=== PATIENT | female | born 1955 | race Caucasian/White ===

== ENCOUNTER 2016-07-12 06:55 | Emergency (ER) | payer OTHER, MEDICAID ==
[~2016-07-12] VITALS: Ht 167.6 cm; Wt 74.0 kg
[2016-07-12 06:56] VITALS: BP 122/78; PULSE 99; RESP 22; TEMP 97.9; O2SAT 95
--- NOTE | 2016-07-12 07:49 | RADRPT ---
EXAM DATE/TIME: 07/12/2016 07:53 [facility] COMPARISON: No previous studies available for comparison. INDICATIONS : Short of breath and productive cough for three days. MEDICAL HISTORY : None. SURGICAL HISTORY : None. ENCOUNTER: Initial ACUITY: 3 days PAIN SCORE: 0/10 LOCATION: Bilateral chest FINDINGS: PA and lateral views of the chest demonstrate the lungs to be symmetrically aerated without evidence of mass, infiltrate or effusion. The cardiomediastinal contours are unremarkable. Osseous structure s are intact. CONCLUSION: Normal examination. Nayely Kraus MD on July 12, 2016 at 7:47 Board Certified Radiologist. This report was verified electronically.
--- NOTE | 2016-07-12 07:58 | PD ---
HPI Chief Complaint: Cold / Flu Symptoms Time Seen by Provider: 07:55 Travel History International Travel<30 days: No Contact w/Intl Traveler<30days: No Traveled to known affect area: No History of Present Illness HPI 60-year-old female presents to the emergency department for evaluation of productive cough, congestion, sore throat, intermittent shortness of breath for 2 days. She believes she has run a fever, but has not checked her temperature. She denies any chest pain. No abdominal pain. No nausea or vomiting. She has no chronic medical problems and takes no prescribed medications. Patient states this feels like previous bronchitis in the past. Patient is a current smoker. She denies any recent travel or surgery. No history of blood clots. No hemoptysis. She has no other complaints. PFSH Past Surgical History Tonsillectomy: Yes Social History Alcohol Use: Yes (rare) Tobacco Use: Yes (04/22 ppd) Substance Use: No Allergies-Medications (Allergen,Severity, Reaction): Coded Allergies: No Known Allergies (Unverified , 07/12/16) Reported Meds & Prescriptions Reported Meds & Active Scripts Active Zithromax Z-Eulalio (Azithromycin) 250 Mg Dspk 250 Mg PO DIRECTED 500 MG (2 tabs) day 1, then 1 tab days 2-5. Prednisone 20 Mg Tab 40 Mg PO DAILY 4 Days Proair Hfa 8.5 GM Inh (Albuterol Sulfate) 90 Mcg/Act Aer 1 Puff INH Q4H PRN 108 mcg/actuation Review of Systems Except as stated in HPI: all other systems reviewed are Neg Physical Exam Narrative GENERAL: Well-developed well-nourished female patient, ambulatory. Afebrile. SKIN: Warm and dry. HEAD: Normocephalic. Atraumatic. ENT: Mucosa pink and moist. No erythema or exudates. No uvular edema. No uvular , palatal, or tonsillar deviation. Airway patent. Nasal turbinates appear normal without nasal blood, purulent drainage or septal hematoma. Bilateral tympanic membranes are clear without erythema or perforation. EYES: No scleral icterus. No injection or drainage. NECK: Supple, trachea midline. No JVD or lymphadenopathy. CARDIOVASCULAR: Regular rate and rhythm without murmurs, gallops, or rubs. RESPIRATORY: Breath sounds equal bilaterally. No accessory muscle use. Lungs sounds with slight extra wheezes noted throughout. GASTROINTESTINAL: Abdomen soft, non-tender, nondistended. MUSCULOSKELETAL: No cyanosis, or edema. BACK: Nontender without obvious deformity. No CVA tenderness. Data Data Last Documented VS Vital Signs Date Time Temp Pulse Resp B/P Pulse Ox O2 Delivery O2 Flow Rate FiO2 07/12/16 06:56 97.9 99 22 122/78 95 Room Air Orders Complete Blood Count With Diff (07/12/16 07:24) Basic Metabolic Panel (Bmp) (07/12/16 07:24) Chest, Pa & Lat (07/12/16 07:24) Blood Culture (07/12/16 07:24) Iv Access Insert/Monitor (07/12/16 07:24) Ecg Monitoring (07/12/16 07:24) Oxygen Administration (07/12/16 07:24) Oximetry (07/12/16 07:24) Electrocardiogram (07/12/16 07:24) Prednisone (Deltasone) (07/12/16 08:00) Albuterol-Ipratropium Neb (Duoneb Neb) (07/12/16 08:00) Influenzae A/B Antigen (07/12/16 07:59) Potassium Chloride (Kcl) (07/12/16 09:15) Labs Laboratory Tests Test 07/12/16 07:55 White Blood Count 13.1 TH/MM3 Red Blood Count 4.96 MIL/MM3 Hemoglobin 15.2 GM/DL Hematocrit 44.8 % Mean Corpuscular Volume 90.3 FL Mean Corpuscular Hemoglobin 30.6 PG Mean Corpuscular Hemoglobin 33.9 % Concent Red Cell Distribution Width 13.3 % Platelet Count 291 TH/MM3 Mean Platelet Volume 7.7 FL Neutrophils (%) (Auto) 77.0 % Lymphocytes (%) (Auto) 15.0 % Monocytes (%) (Auto) 6.3 % Eosinophils (%) (Auto) 1.4 % Basophils (%) (Auto) 0.3 % Neutrophils # (Auto) 10.1 TH/MM3 Lymphocytes # (Auto) 2.0 TH/MM3 Monocytes # (Auto) 0.8 TH/MM3 Eosinophils # (Auto) 0.2 TH/MM3 Basophils # (Auto) 0.0 TH/MM3 CBC Comment DIFF FINAL Differential Comment Sodium Level 136 MEQ/L Potassium Level 3.3 MEQ/L Chloride Level 102 MEQ/L Carbon Dioxide Level 26.8 MEQ/L Anion Gap 7 MEQ/L Blood Urea Nitrogen 11 MG/DL Creatinine 0.90 MG/DL Estimat Glomerular Filtration 64 ML/MIN Rate Random Glucose 120 MG/DL Calcium Level 9.3 MG/DL [facility] Medical Decision Making Medical Screen Exam Complete: Yes Emergency Medical Condition: Yes Medical Record Reviewed: Yes Interpretation(s) Last Impressions Chest X-Ray 07/12/16 0724 Signed Impressions: Service Date/Time: Tuesday, July 12, 2016 07:53 - CONCLUSION: Normal examination. Nayely Kraus MD Differential Diagnosis Bronchitis versus URI versus pneumonia versus sinusitis Narrative Course 60-year-old female presents to the emergency department for evaluation of cold symptoms for 2 days. Physical exam reveals expiratory wheezes noted throughout. Physical exam is consistent with URI/bronchitis. CBC, BMP, EKG, chest x-ray, blood cultures 2 were ordered prior to me seeing the patient. Influenza is ordered and pending. Patient is given DuoNeb 2 and prednisone 60 mg by mouth CBC shows leukocytosis of 13.1. BMP shows hypokalemia of 3.3. Patient is given potassium 20 meq PO. EKG shows SR, HR 75. Chest x-ray is normal. Influenza is negative. Patient will be discharged with a prescription for azithromycin, albuterol inhaler, and prednisone. She is to follow up with a primary care physician. Patient is to return for any acute, worsening of symptoms. The patient was discharged in stable condition with instructions, including return instructions and follow up instructions. Diagnosis Primary Impression: Upper respiratory infection, acute Referrals: Primary Care Physician call for appointment Patient Instructions: General Instructions, Upper Respiratory Infection (ED) Departure Forms: Tests/Procedures, Work Release Enter return to work date: Jul 14, 2016 Additional Instructions: Take azithromycin as directed until gone. Use albuterol inhaler as directed as needed for shortness of breath/wheezing. Take prednisone as directed until gone. Start this tomorrow. Follow up with a primary care physician. Return to the emergency department for any acute, worsening of symptoms. Med/Other Pt SpecificInfo: Prescription(s) given Scripts Azithromycin (Zithromax Z-Eulalio)250 Mg [id number] Mg PO DIRECTED #1 DSPK Ref 0 500 MG (2 tabs) day 1, then 1 tab days 2-5. Prov:Ruperto,Neris RECORDS ASSISTANT 07/12/16 Prednisone 20 Mg Tab40 Mg PO DAILY 4 Days Ref 0 Prov:Neris Hickey 07/12/16 Albuterol 8.5 GM Inh (Proair Hfa 8.5 GM Inh)90 Mcg/Act Aer1 Puff INH Q4H PRN ( SHORTNESS OF BREATH) #1 INHALER Ref 0 108 mcg/actuation Prov:Neris Hickey 07/12/16 Disposition: 01 DISCHARGE HOME Condition: Stable Neris Hickye Jul 12, 2016 07:58
[2016-07-12] MEDS ORDERED: predniSONE 20 MG TAB PO ONE (08:00)
[2016-07-12] MEDS: RESP: ALBUTEROL 2.5 MG/IPRATROPIUM 0.5 MG NEB (SCH) INH ×2 (08:14→08:18)
[2016-07-12 08:43] LABS: AUTOMATED NEUTROPHIL # 10.1 TH/MM3 (1.8-7.7); BASOPHIL % 0.3 % (0.0-2.0); EOSINOPHIL # 0.2 TH/MM3 (0-0.4); EOSINOPHIL % 1.4 % (0.0-4.0); HEMATOCRIT 44.8 % (35.0-46.0); HEMO FLAGS DIFF FINAL; MEAN CELL VOLUME 90.3 FL (80.0-100.0); MEAN CORPUSCULAR HEMOGLOBIN 30.6 PG (27.0-34.0); MEAN CORPUSCULAR HGB CONC 33.9 % (32.0-36.0); MONO % 6.3 % (0.0-8.0); PLATELET COUNT 291 TH/MM3 (150-450); RED BLOOD COUNT 4.96 MIL/MM3 (4.00-5.30); RED CELL DISTRIBUTION WIDTH 13.3 % (11.6-17.2); WHITE BLOOD COUNT 13.1 TH/MM3 (4.0-11.0)
[2016-07-12 09:06] LABS: BICARBONATE 26.8 MEQ/L (21.0-32.0); POTASSIUM 3.3 MEQ/L (3.5-5.1)
[2016-07-12] MEDS ORDERED: POTASSIUM CHLORIDE 20 MEQ CONTROLLED RELEASE TAB PO ONE (09:15)
[2016-07-12] MEDS ORDERED: PRED20 PO (09:27)
[2016-07-12] MEDS ORDERED: ALBUAER3 INH (09:27)
[2016-07-12] MEDS ORDERED: ZITHTAB PO (09:27)
--- NOTE | 2016-07-13 14:05 | EKG ---
Date Performed: 07/12/2016 Time Performed: 07:59:47 PTAGE: 60 years EKG: Sinus rhythm WITH SHORT [place] INTERVAL BORDERLINE ECG NO PREVIOUS TRACING DOCTOR: Dwight Solis Interpretating Date/Time 07/13/2016 14:01:49
== END 2016-07-12 09:46 | disposition home or self-care (01) ==
LOC: NETRI 06:55
DX: J06.9 Acute upper respiratory infection, unspecified (principal); R94.31 Abnormal electrocardiogram [ECG] [EKG]; Z72.0 Tobacco use
CPT/HCPCS: 71020; 80048; 85025; 87040; 87804; 93005; 94640; 94664; 99284; J7512

== ENCOUNTER 2017-06-22 13:44 | Emergency (ER) | payer OTHER ==
[~2017-06-22 13:44] MED LIST: ALBUAER3 INH; PRED20 PO; ZITHTAB PO
[2017-06-22 14:10] VITALS: BP 137/72; PULSE 102; RESP 18; TEMP 98.2; O2SAT 96
--- NOTE | 2017-06-22 14:40 | RADRPT ---
EXAM DATE/TIME: 06/22/2017 14:32 [facility] COMPARISON: CHEST PA & LAT, July 12, 2016, 7:53. INDICATIONS : Cough, tightness in her chest MEDICAL HISTORY : bronchitis SURGICAL HISTORY : None. ENCOUNTER: Initial ACUITY: 4 - 6 days PAIN SCORE: 0/10 LOCATION: Bilateral chest FINDINGS: PA and lateral views of the chest demonstrate the lungs to be symmetrically aerated without evidence of mass, infiltrate or effusion. The cardiomediastinal contours are unremarkable. Osseous structure s are intact. CONCLUSION: No acute disease. No significant change has occurred. Darryl Renteria MD on June 22, 2017 at 14:38 Board Certified Radiologist. This report was verified electronically.
--- NOTE | 2017-06-22 17:43 | PD ---
HPI Chief Complaint: Respiratory Symptoms Time Seen by Provider: 17:34 Travel History International Travel<30 days: No Contact w/Intl Traveler<30days: No Traveled to known affect area: No History of Present Illness HPI Patient comes emergency department complaining of possible bronchitis flareup. Patient reports symptoms began a week ago. Patient states that it feels similar to previous bronchial flare. Patient reports using an old albuterol inhaler from a year and a half ago when she last had this. Patient reports she continues to smoke about 8 cigarettes a day but has not smoked much over the past week secondary to the cough and wheezing. Patient denies any known fevers. Patient's cough is occasionally productive with yellowish greenish phlegm. Patient reports coworkers are sick with similar symptoms. Patient reports taking [id number] cough medicine for symptomatic relief with minimal to no improvement. Reports a burning sensation throughout her chest when she coughs. Denies any other chest pain, fevers, abdominal pain, back pain , numbness or tingling wear, nausea, vomiting, loss change in bowel or bladder, sore throat, or headaches. PFSH Past Medical History Medical History: Denies Significant Hx Past Surgical History Tonsillectomy: Yes Social History Alcohol Use: Yes (rare) Tobacco Use: Yes (/ ppd) Substance Use: No Allergies-Medications (Allergen,Severity, Reaction): Coded Allergies: No Known Allergies (Unverified , 07/12/16) Reported Meds & Prescriptions Reported Meds & Active Scripts Active Ventolin Hfa 18 GM Inh (Albuterol Sulfate) 90 Mcg/Act Aer 2 Puff INH Q4H PRN Zithromax Z-Eulalio (Azithromycin) 250 Mg Dspk 250 Mg PO DIRECTED 500 MG (2 tabs) day 1, then 1 tab days 2-5. Prednisone 20 Mg Tab 40 Mg PO DAILY 4 Days Start 06/23/17 Proair Hfa 8.5 GM Inh (Albuterol Sulfate) 90 Mcg/Act Aer 1 Puff INH Q4H PRN 108 mcg/actuation Review of Systems Except as stated in HPI: all other systems reviewed are Neg Physical Exam Narrative GENERAL: Well-developed, overly nourished, in no acute distress, and non-ill appearing. SKIN: Focused skin assessment warm and dry. HEAD: Atraumatic. Normocephalic. EYES: Pupils equal and round. EOMI. No scleral icterus. No injection or drainage. ENT: No nasal bleeding or discharge. Mucous membranes pink and moist. Tympanic membranes pearly stevenson bilaterally. Posterior pharynx nonerythematous without exudate. Uvula is midline. No tenderness to facial sinuses to palpation. NECK: Trachea midline. No cervical lymphadenopathy. Supple. No nuclear rigidity. CARDIOVASCULAR: Regular rate and rhythm. No murmur appreciated. RESPIRATORY: No accessory muscle use. No respiratory distress. Scant wheezing noted throughout. Breath sounds equal bilaterally. Dry cough noted on exam. Patient speaking in full sentences without difficulty. MUSCULOSKELETAL: No obvious deformities. No clubbing. No cyanosis. No edema. Full range of motion. NEUROLOGICAL: Awake and alert. No obvious cranial nerve deficits. Motor grossly within normal limits. Normal speech. PSYCHIATRIC: Appropriate mood and affect; insight and judgment normal. Data Data Last Documented VS Vital Signs Date Time Temp Pulse Resp B/P (MAP) Pulse Ox O2 Delivery O2 Flow Rate FiO2 06/22/17 14:10 98.2 102 18 137/72 (93) 96 Orders Orders Chest, Pa & Lat (06/22/17 ) Albuterol-Ipratropium Neb (Duoneb Neb) (06/22/17 17:45) Resp Mdi/Instruction (06/22/17 17:39) Prednisone (Deltasone) (06/22/17 17:45) Ed Discharge Order (06/22/17 18:45) MDM Medical Decision Making Medical Screen Exam Complete: Yes Emergency Medical Condition: Yes Interpretation(s) Last Impressions Chest X-Ray 06/22/17 0000 Signed Impressions: Service Date/Time: Thursday, June 22, 2017 14:32 - CONCLUSION: No acute disease. No significant change has occurred. Darryl Renteria MD Differential Diagnosis COPD exacerbation, pneumonia, bronchitis, URI Narrative Course Patients symptom complex is consistent with bronchitis. The patient is non-ill appearing and is in no respiratory distress and comfortable. The patient moves air well and oxygen saturations are normal. Chest x-ray revealed no evidence of obvious consolidation of infiltrate. There is no clinical evidence to suggest pneumonia at this time. Plan of care and management were discussed with the patient who agreed with plan. The patient was instructed to follow up with their physician and instructed to return if worsens, progressively worsening shortness of breath or difficulty breathing, persistent fever, chest pains or discomfort, inability to keep medication or fluids down with or without vomiting , or as needed. Patient in no obvious distress upon re-evaluation. All pertinent Radiology result(s) discussed with patient. Patient was asked if they wanted to speak to my attending, which the patient did not wish to do at this time. Any questions/ concerns in reference to patient diagnosis/condition discussed and clarified prior to patient's discharge. Reinforced sheer importance of close follow up with patient's primary physician or primary care clinic. Instructed patient to return to ED immediately, if symptoms return/worsen. Patient showed understanding of above instructions. Further instructions and recommendations were detailed in discharge paperwork. Patient ambulated without difficulty out of ED at discharge. Diagnosis Primary Impression: Bronchitis Referrals: Anupama Altman MD [facility] Patient Instructions: Acute Bronchitis (ED), General Instructions Additional Instructions: Follow-up with your primary care physician and/or nanoscience technician in 3-5 days for reevaluation. Take all medication as prescribed. Stop smoking. Return to the emergency department if symptoms get worse. Scripts Albuterol 18 GM Inh (Ventolin Hfa 18 GM Inh) 90 Mcg/Act Aer 2 PUFF INH Q4H Y for SHORTNESS OF BREATH, #1 INHALER 0 Refills Prov: Margo Longoria MD 06/22/17 Azithromycin (Zithromax Z-Eulalio) 250 Mg Dspk 250 MG PO DIRECTED for Infection, #1 DSPK 0 Refills 500 MG (2 tabs) day 1, then 1 tab days 2-5. Prov: Margo Longoria MD 06/22/17 Prednisone (Prednisone) 20 Mg Tab 40 MG PO DAILY for 4 Days, TAB 0 Refills Start 06/23/17 Prov: Margo Longoria MD 06/22/17 Disposition: 01 DISCHARGE HOME Condition: Stable Jean Bruno Jun 22, 2017 17:43
[2017-06-22] MEDS ORDERED: predniSONE 20 MG TAB PO ONE (17:45)
[2017-06-22] MEDS: RESP: ALBUTEROL 2.5 MG/IPRATROPIUM 0.5 MG NEB (SCH) INH ×2 (18:17→19:18)
[2017-06-22] MEDS ORDERED: PRED20 PO (18:43)
[2017-06-22] MEDS ORDERED: VENTAER INH (18:43)
[2017-06-22] MEDS ORDERED: ZITHTAB PO (18:43)
== END 2017-06-22 19:29 | disposition home or self-care (01) ==
LOC: NEPK 13:44
DX: J40 Bronchitis, not specified as acute or chronic (principal); F17.200 Nicotine dependence, unspecified, uncomplicated
CPT/HCPCS: 71046; 94640; 94664; 99283; J7512